=== PATIENT | female | born 2000 | race Caucasian/White ===

== ENCOUNTER 2022-05-12 15:43 | Emergency (ER) | payer BC ==
[~2022-05-12] VITALS: Ht 175.3 cm; Wt 61.2 kg
[2022-05-12 16:06] VITALS: BP_SYST 107
--- NOTE | 2022-05-12 16:08 | NUR ---
Patient triaged and placed in waiting room. VSS and patient appears in no acute distress at this time. Accompanied by MOTHER, awaiting available bed, and MD notified of need for MSE.
--- NOTE | 2022-05-12 16:08 | NUR ---
Kinsey [email or web address] in [facility] - 05/12/22 at 1608 by [email or web address] T
--- NOTE | 2022-05-12 16:45 | NUR ---
PATIENT BROUGHT IN WITH MOTHER COMPLAINING OF RUQ ABDOMINAL PAIN NON RADIATING SHARP STARTING AROUND 10 AM WITH NAUSEA. AFEBRILE. PAIN 6/10
[2022-05-12 17:00] LABS: BASOPHILS # (AUTO) 0.1 K/uL (0.0-0.2); BASOPHILS % (AUTO) 0.4 % (0.0-2.0); EOSINOPHILS # (AUTO) 0.2 K/uL (0.0-0.4); EOSINOPHILS % (AUTO) 1.6 % (0.0-4.0); HEMATOCRIT 39.9 % (36-48); HEMOGLOBIN 13.7 g/dL (12.0-16.0); LYMPHOCYTES # (AUTO) 1.6 K/uL (1.0-5.5); LYMPHOCYTES % (AUTO) 10.6 % (20.5-51.5); MEAN CORPUSCULAR HEMOGLOBIN 31 pg (27-31); MEAN CORPUSCULAR HGB CONC 34 % (32-36); MEAN CORPUSCULAR VOLUME 90 fL (79.0-98.0); MONOCYTES # (AUTO) 1.1 K/uL (0.0-1.0); MONOCYTES % (AUTO) 7.2 % (1.7-9.3); NEUTROPHILS # (AUTO) 11.8 K/uL (1.8-7.7); NEUTROPHILS % (AUTO) 80.2 % (40.0-70.0); PLATELET COUNT (AUTO) 251 K/uL (130-430); RED BLOOD CELL COUNT(AUTO) 4.46 MIL/uL (4.2-6.2); RED CELL DISTRIBUTION WIDTH 13.1 % (9.0-15.0); WHITE BLOOD COUNT (AUTO) 14.8 K/uL (4.5-11.0)
[2022-05-12 17:16] LABS: CALCIUM 8.7 mg/dL (8.4-11.0); CREATININE 0.98 mg/dL (0.55-1.30)
[2022-05-12 17:20] LABS: ALBUMIN 4.4 g/dL (3.4-4.8); TOTAL BILIRUBIN 1.3 mg/dL (0.0-1.0)
[2022-05-12 17:54] LABS: BILIRUBIN,URINE NEGATIVE (NEGATIVE); BLOOD, URINE 1+ (NEGATIVE); CLARITY/URINE SL CLOUDY (CLEAR); COLOR,URINE YELLOW (YELLOW); GLUCOSE,URINE NEGATIVE (NEGATIVE); KETONES,URINE NEGATIVE (NEGATIVE); LEUKOCYTE ESTERASE ,URINE 1+ (NEGATIVE); NITRITE, URINE NEGATIVE (NEGATIVE); PH,URINE 5.5 (5.0-8.0); PROTEIN URINE 1+ (NEGATIVE); UROBILINOGEN,URINE 0.2 (0.2-1.0)
[2022-05-12 18:26] LABS: BACTERIA,URINE FEW /HPF (None Seen); WBC,URINE 20-50 /HPF (0-3)
--- NOTE | 2022-05-12 21:52 | NUR ---
INNA Conley at bedside examining patient.
[2022-05-12] MEDS ORDERED: KETOROLAC TROMETHAMINE 30 MG VIAL IVP ONE (22:00)
[2022-05-12] MEDS ORDERED: NACL 0.9% 1,000 ML IV ONE (22:00)
[2022-05-12] MEDS ORDERED: ONDANSETRON HCL 4 MG/2 ML VIAL IVP ONE (23:30)
[2022-05-12] MEDS ORDERED: MORPHINE 4 MG INJ. 4 MG/ML VIAL IVP ONE (23:30)
--- NOTE | 2022-05-13 00:39 | NUR ---
DR. LIMA AT BEDSIDE WITH PATIENT TO UPDATE ABOUT PLAN OF CARE.
--- NOTE | 2022-05-13 01:40 | NUR ---
PT REPORTING NAUSEA. DR. LIMA MADE AWARE.
[2022-05-13] MEDS ORDERED: ONDANSETRON HCL 4 MG/2 ML VIAL ONE (01:41)
[2022-05-13] MEDS ORDERED: ONDANSETRON HCL 4 MG/2 ML VIAL IVP ONE ×2 (01:45)
[2022-05-13] MEDS ORDERED: GASTROGRAFIN 120 ML PO ONE (02:00)
[2022-05-13] MEDS ORDERED: GASTROGRAFIN 120 ML ONE ×2 (02:06→04:11)
--- NOTE | 2022-05-13 03:10 | NUR ---
PT RESTING IN BED WITH EYES CLOSED. EVEN AND UNLABORED RESPS NOTED, NAD. SAFETY PRECAUTIONS IN PLACE AND MOTHER AT BEDSIDE.
[2022-05-13] MEDS ORDERED: ONDA-8 TL (05:10)
[2022-05-13] MEDS ORDERED: CEFU250T85 PO (05:10)
[2022-05-13] MEDS ORDERED: TRAM50TA2 PO (05:10)
[2022-05-13] MEDS ORDERED: cefTRIAXone 1 GM in D5W 50 ML IV ONE (05:15)
[2022-05-13] MEDS ORDERED: cefTRIAXone 500 MG in LIDOCAINE 1%, 20 ML MDV 1 ML IM ONE (05:15)
[2022-05-13 05:27] VITALS: BP_SYST 114
--- NOTE | 2022-05-13 05:27 | NUR ---
Patient given written and verbal discharge instructions and verbalizes understanding. ER DR. LIMA discussed with patient the results and treatment provided. Patient in stable condition. ID arm band removed. IV catheter removed intact and dressing applied, no active bleeding. Rx of CEFTIN, ZOFRAN, AND ULTRAM given. Patient educated on pain management and to follow up with PMD. Pain Scale 0. Opportunity for questions provided and answered. Medication side effect fact sheet provided.
== END 2022-05-13 05:27 | disposition home or self-care (01) ==
LOC: SED 15:43
DX: N39.0 Urinary tract infection, site not specified (principal); R10.31 Right lower quadrant pain; K59.00 Constipation, unspecified; R30.0 Dysuria; Z79.899 Other long term (current) drug therapy
CPT/HCPCS: 99285; 74177; 96374; 76700; 96375; 96361; 80053; 81000; 83690; 85025; 85651; 87086; 36415; 76376 ×2; 81025; 71250; 74220; 96376; 96372; J1885; J2405 ×2; J2270; Q9967; J7030; J0696; Q9963